=== PATIENT | male | born 1995 | race African-American/Black ===

== ENCOUNTER 2024-08-31 18:41 | Emergency (ER) | payer MEDICAID, OTHER ==
[~2024-08-31] VITALS: Ht 180.3 cm; Wt 93.2 kg
[2024-08-31 18:52] VITALS: BP 129/73; PULSE 84; RESP 18; TEMP 98.2; O2SAT 99
[2024-08-31] MEDS: TraMADol HCL 50 MG TABLET PO ONE (19:33)
[2024-08-31] MEDS ORDERED: TRAM50TA5 PO (21:38)
[2024-08-31] MEDS ORDERED: HYDR-4062 PO (23:24)
== END 2024-08-31 21:49 | disposition home or self-care (01) ==
LOC: EMS 18:47
DX: S52.612A Displaced fracture of left ulna styloid process, initial encounter for closed fracture (principal); S52.502A Unspecified fracture of the lower end of left radius, initial encounter for closed fracture; V00.141A Fall from scooter (nonmotorized), initial encounter; Y93.89 Activity, other specified; Y92.89 Other specified places as the place of occurrence of the external cause; Y99.8 Other external cause status
CPT/HCPCS: 99283